=== PATIENT | male | born 1955 | race Caucasian/White ===

== ENCOUNTER 2022-10-21 12:23 | Outpatient (CLI) | payer MEDICARE | END 2022-10-21 12:24 | disposition home or self-care (01) | LOC: MADRAD 12:23 | PROVIDERS: ATTEND Registered Nurse | DX: J06.9 Acute upper respiratory infection, unspecified (principal); R07.81 Pleurodynia | CPT/HCPCS: 71046 ==

== ENCOUNTER 2023-05-31 14:15 | Emergency (ER) | payer OTHER, MEDICARE ==
[2023-05-31] MEDS ORDERED: Bupivacaine PF 0.5% 30 ML VIAL ONE (14:43)
[2023-05-31] MEDS ORDERED: Bacitracin 1 PK ONE (16:23)
== END 2023-05-31 16:40 | disposition home or self-care (01) ==
LOC: MADERS 14:15
DX: S02.2XXA Fracture of nasal bones, initial encounter for closed fracture (principal); S61.212A Laceration without foreign body of right middle finger without damage to nail, initial encounter; I10 Essential (primary) hypertension; Z79.899 Other long term (current) drug therapy; W01.10XA Fall on same level from slipping, tripping and stumbling with subsequent striking against unspecified object, initial encounter
CPT/HCPCS: 12002; 70486; S0020